=== PATIENT | female | born 1940 | race Hispanic/Latino ===

== ENCOUNTER 2021-11-27 20:36 | Inpatient (IN) | payer MEDICARE ==
[2021-11-27] MEDS ORDERED: Loperamide HCl 2 MG CAP PO PRN ×2 (21:38)
[2021-11-27] MEDS ORDERED: Ondansetron ODT 4 MG TAB PO PRN (21:38)
[2021-11-27] MEDS ORDERED: Ondansetron PF 4 MG/2 ML Vial IVP PRN (21:38)
[2021-11-27] MEDS ORDERED: traMADol HCl 50 MG TAB PO PRN (21:46)
[2021-11-27] MEDS ORDERED: metroNIDAZOLE 500 MG in Premix Bag 1 BAG IVPB SCH (22:00)
[2021-11-27 22:11] LABS: SARS-CoV-2 NAA Rapid Test DETECTED (NotDetected)
[2021-11-28] MEDS ORDERED: Ondansetron ODT 4 MG TAB PO PRN (04:57)
[2021-11-28] MEDS ORDERED: Loperamide HCl 2 MG CAP PO PRN ×2 (04:57→04:58)
[2021-11-28] MEDS ORDERED: Gabapentin 400 MG CAP PO SCH ×5 (05:15→15:00)
[2021-11-28] MEDS: traMADol HCl 50 MG TAB PO PRN ×3 (05:20→15:25)
[2021-11-28] MEDS: metroNIDAZOLE 500 MG in Premix Bag 1 BAG IVPB SCH ×2 (05:22→15:09)
[2021-11-28 06:59] LABS: #Monocytes 0.3 10x3/uL (0.0-1.1); #Neutrophils 2.1 10x3/uL (1.5-8.4); %Eosinophils 0.8 % (0.0-6.0); %Lymphocytes 31.3 % (18.0-47.0); %Monocytes 7.3 % (0.0-10.0); %Neutrophils 60.3 % (40.0-75.0); Hemoglobin 8.6 g/dL (12.0-15.5); Mean Corpuscular HGB CONC 31.7 g/dL (32.0-36.0); Mean Corpuscular Hemoglobin 29.5 pg (27.0-33.0); Mean Corpuscular Volume 92.8 fl (81.6-98.3); Mean Platelet Volume 9.2 fl (7.4-10.4); Platelet Count 183 10x3/uL (150-450); RBC Distribution Width 17.9 % (11.5-14.5); Red Blood Cell (RBC) Count 2.92 10x6/uL (3.90-5.03); White Blood Cell (WBC) Count 3.6 10x3/uL (3.5-10.5)
[2021-11-28 07:01] LABS: ALT (SGPT) 10 U/L (8-55); AST (SGOT) 27 U/L (5-34); Alkaline Phosphatase 54 U/L (40-110); Anion Gap 11 mmol/L (10-20); BUN (Urea Nitrogen) 8 mg/dL (9.8-20.1); Bilirubin, Total 0.1 mg/dL (0.2-1.2); Calc. Creatinine Clearance 0 mL/min (70-130); Calcium 7.8 mg/dL (7.8-10.44); Carbon Dioxide 27 mmol/L (23-31); Chloride 106 mmol/L (98-107); Globulin 2.3 g/dL (2.4-3.5); Glucose 101 mg/dL (83-110); Magnesium 1.6 mg/dL (1.6-2.6); Potassium 3.1 mmol/L (3.5-5.1); Protein, Total 5.3 g/dL (5.8-8.1); Sodium 141 mmol/L (136-145)
[2021-11-28] MEDS ORDERED: Clopidogrel Bisulfate 75 MG TAB PO SCH ×2 (09:00)
[2021-11-28] MEDS ORDERED: Atorvastatin Calcium 20 MG TAB PO SCH (09:00)
[2021-11-28] MEDS ORDERED: Famotidine 20 MG TAB PO SCH ×3 (09:00→21:00)
[2021-11-28] MEDS ORDERED: Calcium Carbonate 500 MG ChewTAB PO SCH (09:00)
[2021-11-28] MEDS ORDERED: Aspirin 81 mg Enteric Coated Tablet PO SCH ×2 (09:00)
[2021-11-28] MEDS ORDERED: Enoxaparin Sodium 40 MG/0.4 ML SYRINGE SC SCH ×2 (09:00)
[2021-11-28] MEDS ORDERED: Metoprolol Tartrate 25 MG TAB PO SCH (09:00)
[2021-11-28 09:42] LABS: #Monocytes 0.3 10x3/uL (0.0-1.1); #Neutrophils 2.3 10x3/uL (1.5-8.4); %Eosinophils 0.8 % (0.0-6.0); %Lymphocytes 29.4 % (18.0-47.0); %Monocytes 6.8 % (0.0-10.0); %Neutrophils 62.5 % (40.0-75.0); Hemoglobin 8.6 g/dL (12.0-15.5); Mean Corpuscular HGB CONC 31.3 g/dL (32.0-36.0); Mean Corpuscular Hemoglobin 29.1 pg (27.0-33.0); Mean Corpuscular Volume 92.9 fl (81.6-98.3); Mean Platelet Volume 9.6 fl (7.4-10.4); Platelet Count 211 10x3/uL (150-450); RBC Distribution Width 18.2 % (11.5-14.5); Red Blood Cell (RBC) Count 2.96 10x6/uL (3.90-5.03); White Blood Cell (WBC) Count 3.7 10x3/uL (3.5-10.5)
[2021-11-28] MEDS: Metoprolol Tartrate 25 MG TAB PO SCH (09:43)
[2021-11-28] MEDS: Atorvastatin Calcium 20 MG TAB PO SCH (09:43)
[2021-11-28] MEDS: Calcium Carbonate 500 MG ChewTAB PO SCH ×2 (09:43→20:45)
[2021-11-28 10:03] LABS: ALT (SGPT) 9 U/L (8-55); AST (SGOT) 27 U/L (5-34); Alkaline Phosphatase 54 U/L (40-110); Anion Gap 13 mmol/L (10-20); BUN (Urea Nitrogen) 8 mg/dL (9.8-20.1); Bilirubin, Total 0.2 mg/dL (0.2-1.2); Calc. Creatinine Clearance 0 mL/min (70-130); Calcium 7.8 mg/dL (7.8-10.44); Carbon Dioxide 26 mmol/L (23-31); Chloride 105 mmol/L (98-107); Globulin 2.3 g/dL (2.4-3.5); Glucose 96 mg/dL (83-110); Magnesium 1.6 mg/dL (1.6-2.6); Phosphorus 3.4 mg/dL (2.3-4.7); Potassium 3.5 mmol/L (3.5-5.1); Protein, Total 5.3 g/dL (5.8-8.1); Sodium 140 mmol/L (136-145)
[2021-11-28 10:09] LABS: PTT 26.4 sec (22.0-33.0); Prothrombin Time 10.7 sec (9.5-12.1)
[2021-11-28] MEDS: Ondansetron PF 4 MG/2 ML Vial IVP PRN (13:39)
[2021-11-28] MEDS: Gabapentin 300 MG CAP PO SCH (20:44)
[2021-11-28] MEDS ORDERED: Pantoprazole 40 MG VIAL IVP SCH (21:00)
[2021-11-28 21:49] LABS: Bilirubin Neg (Negative); Blood, Urine 10 (Negative); Clarity Clear (Clear); Glucose, Urine (Dipstick) Normal (Negative); Ketone, Urine Negative (Negative); Leukocyte 25 (Negative); Nitrite Negative (Negative); Protein, Urine (Dipstick) 30 mg/dl (Neg-Trace); Urobilinogen Normal mg/dL (Less than 2)
[2021-11-28 21:51] LABS: Urine Culture Reflex No No
[2021-11-28 22:00] LABS: Squamous Epithelial 0-3 HPF (0-3)
[2021-11-28 22:01] LABS: Bacteria/HPF 3+ HPF (None Seen); RBC/HPF 0-3 HPF (0-3); WBC/HPF 0-3 HPF (0-3)
[2021-11-29] MEDS: traMADol HCl 50 MG TAB PO PRN ×3 (00:12→15:41)
[2021-11-29 04:56] LABS: ALT (SGPT) 8 U/L (8-55); AST (SGOT) 27 U/L (5-34); Alkaline Phosphatase 50 U/L (40-110); Anion Gap 11 mmol/L (10-20); BUN (Urea Nitrogen) 8 mg/dL (9.8-20.1); Bilirubin, Total 0.2 mg/dL (0.2-1.2); CRP (Inflammatory) 5.09 mg/dL (= or < 0.5); Calc. Creatinine Clearance 0 mL/min (70-130); Calcium 8.1 mg/dL (7.8-10.44); Carbon Dioxide 28 mmol/L (23-31); Chloride 103 mmol/L (98-107); Globulin 2.3 g/dL (2.4-3.5); Glucose 106 mg/dL (83-110); Magnesium 1.6 mg/dL (1.6-2.6); Phosphorus 3.5 mg/dL (2.3-4.7); Potassium 3.2 mmol/L (3.5-5.1); Protein, Total 5.3 g/dL (5.8-8.1); Sodium 139 mmol/L (136-145)
[2021-11-29 04:57] LABS: #Eosinphils 0.1 10x3/uL (0.0-0.5); #Monocytes 0.2 10x3/uL (0.0-1.1); #Neutrophils 1.9 10x3/uL (1.5-8.4); %Eosinophils 1.5 % (0.0-6.0); %Lymphocytes 35.5 % (18.0-47.0); %Monocytes 6.2 % (0.0-10.0); %Neutrophils 56.5 % (40.0-75.0); Hemoglobin 8.4 g/dL (12.0-15.5); Mean Corpuscular HGB CONC 30.4 g/dL (32.0-36.0); Mean Corpuscular Volume 95.2 fl (81.6-98.3); Mean Platelet Volume 10.3 fl (7.4-10.4); Platelet Count 220 10x3/uL (150-450); RBC Distribution Width 17.8 % (11.5-14.5); White Blood Cell (WBC) Count 3.4 10x3/uL (3.5-10.5)
[2021-11-29] MEDS ORDERED: Potassium Chloride 20 MEQ TAB PO SCH (06:15)
[2021-11-29] MEDS: Potassium Chloride 20 MEQ in Premix Bag 1 BAG IVPB SCH ×2 (07:59→13:19)
[2021-11-29] MEDS: Atorvastatin Calcium 20 MG TAB PO SCH (08:00)
[2021-11-29] MEDS: Clopidogrel Bisulfate 75 MG TAB PO SCH (08:00)
[2021-11-29] MEDS: Aspirin 81 mg Enteric Coated Tablet PO SCH (08:00)
[2021-11-29] MEDS: Calcium Carbonate 500 MG ChewTAB PO SCH ×2 (08:00→20:32)
[2021-11-29] MEDS: DULoxetine 30 MG CAP PO SCH (08:00)
[2021-11-29] MEDS: Enoxaparin Sodium 40 MG/0.4 ML SYRINGE SC SCH (08:01)
[2021-11-29] MEDS: Gabapentin 300 MG CAP PO SCH ×3 (08:01→20:32)
[2021-11-29] MEDS: Metoprolol Tartrate 25 MG TAB PO SCH (08:02)
[2021-11-29] MEDS ORDERED: Famotidine 20 MG TAB PO SCH (10:00)
[2021-11-29] MEDS: Ondansetron PF 4 MG/2 ML Vial IVP PRN (13:21)
[2021-11-29] MEDS: Iron, Sodium Ferric Gluconate 125 MG, Admixture Fee 1 EACH in Sodium Chloride 0.9% 100 ML IVPB SCH (15:45)
[2021-11-29] MEDS: Lidocaine 5% Patch TD SCH (17:19)
[2021-11-29] MEDS: Famotidine 20 MG TAB PO SCH (20:31)
[2021-11-30 04:36] LABS: #Eosinphils 0.1 10x3/uL (0.0-0.5); #Monocytes 0.3 10x3/uL (0.0-1.1); #Neutrophils 2.2 10x3/uL (1.5-8.4); %Basophils 0.3 % (0.0-2.0); %Eosinophils 1.9 % (0.0-6.0); %Lymphocytes 30.1 % (18.0-47.0); %Monocytes 6.8 % (0.0-10.0); %Neutrophils 60.4 % (40.0-75.0); Hemoglobin 8.1 g/dL (12.0-15.5); Mean Corpuscular HGB CONC 31.4 g/dL (32.0-36.0); Mean Corpuscular Hemoglobin 29.1 pg (27.0-33.0); Mean Corpuscular Volume 92.8 fl (81.6-98.3); Mean Platelet Volume 10.3 fl (7.4-10.4); Platelet Count 224 10x3/uL (150-450); RBC Distribution Width 17.2 % (11.5-14.5); Red Blood Cell (RBC) Count 2.78 10x6/uL (3.90-5.03); White Blood Cell (WBC) Count 3.7 10x3/uL (3.5-10.5)
[2021-11-30] MEDS: traMADol HCl 50 MG TAB PO PRN ×3 (04:58→15:11)
[2021-11-30 05:17] LABS: ALT (SGPT) 10 U/L (8-55); AST (SGOT) 32 U/L (5-34); Albumin 3.2 g/dL (3.4-4.8); Alkaline Phosphatase 49 U/L (40-110); Anion Gap 13 mmol/L (10-20); BUN (Urea Nitrogen) 8 mg/dL (9.8-20.1); Bilirubin, Total 0.2 mg/dL (0.2-1.2); Calc. Creatinine Clearance 0 mL/min (70-130); Calcium 8.5 mg/dL (7.8-10.44); Carbon Dioxide 29 mmol/L (23-31); Chloride 100 mmol/L (98-107); Globulin 2.4 g/dL (2.4-3.5); Glucose 85 mg/dL (83-110); Magnesium 1.5 mg/dL (1.6-2.6); Phosphorus 2.7 mg/dL (2.3-4.7); Potassium 3.1 mmol/L (3.5-5.1); Protein, Total 5.6 g/dL (5.8-8.1); Sodium 139 mmol/L (136-145)
[2021-11-30] MEDS: LIDOCAINE Patch Removal TOP SCH (05:52)
[2021-11-30] MEDS: Calcium Carbonate 500 MG ChewTAB PO SCH ×2 (09:07→22:11)
[2021-11-30] MEDS: Aspirin 81 mg Enteric Coated Tablet PO SCH (09:07)
[2021-11-30] MEDS: Clopidogrel Bisulfate 75 MG TAB PO SCH (09:07)
[2021-11-30] MEDS: Atorvastatin Calcium 20 MG TAB PO SCH (09:07)
[2021-11-30] MEDS: Enoxaparin Sodium 40 MG/0.4 ML SYRINGE SC SCH (09:07)
[2021-11-30] MEDS: DULoxetine 30 MG CAP PO SCH (09:07)
[2021-11-30] MEDS: Gabapentin 300 MG CAP PO SCH ×3 (09:08→22:11)
[2021-11-30] MEDS: Famotidine 20 MG TAB PO SCH ×2 (09:08→22:11)
[2021-11-30] MEDS: Metoprolol Tartrate 25 MG TAB PO SCH (09:09)
[2021-11-30] MEDS: Ondansetron PF 4 MG/2 ML Vial IVP PRN ×2 (09:09→17:42)
[2021-11-30] MEDS ORDERED: Potassium Chloride 20 MEQ TAB PO SCH (13:45)
[2021-11-30] MEDS ORDERED: ALPRAZolam 0.25 MG TAB PO PRN (13:52)
[2021-11-30] MEDS ORDERED: Iron, Sodium Ferric Gluconate 125 MG, Admixture Fee 1 EACH in Sodium Chloride 0.9% 100 ML IVPB SCH (15:00)
[2021-11-30] MEDS: Magnesium 2 GM/50 ML 2 GM in Premix Bag 1 BAG IVPB SCH ×2 (15:12→18:46)
[2021-11-30] MEDS: metroNIDAZOLE 500 MG in Premix Bag 1 BAG IVPB SCH ×2 (15:12→22:19)
[2021-11-30] MEDS: Iron, Sodium Ferric Gluconate 125 MG, Admixture Fee 1 EACH in Sodium Chloride 0.9% 100 ML IVPB SCH (17:42)
[2021-11-30] MEDS: Lidocaine 5% Patch TD SCH (17:42)
[2021-11-30] MEDS ORDERED: Magnesium 2 GM/50 ML 2 GM in Premix Bag 1 BAG IVPB SCH (19:00)
[2021-11-30] MEDS: Ciprofloxacin Lactate/D5W 200 MG in Premix Bag 1 BAG IVPB SCH (22:09)
[2021-12-01 05:40] LABS: ALT (SGPT) 11 U/L (8-55); AST (SGOT) 33 U/L (5-34); Albumin 3.1 g/dL (3.4-4.8); Alkaline Phosphatase 56 U/L (40-110); Anion Gap 11 mmol/L (10-20); BUN (Urea Nitrogen) 10 mg/dL (9.8-20.1); Bilirubin, Total 0.3 mg/dL (0.2-1.2); Calc. Creatinine Clearance 0 mL/min (70-130); Calcium 8.1 mg/dL (7.8-10.44); Carbon Dioxide 32 mmol/L (23-31); Chloride 96 mmol/L (98-107); Globulin 2.5 g/dL (2.4-3.5); Glucose 111 mg/dL (83-110); Iron 167 ug/dL (50-170); Iron Binding Capacity, Total 184 mcg/dL (265-497); Phosphorus 2.7 mg/dL (2.3-4.7); Potassium 3.2 mmol/L (3.5-5.1); Protein, Total 5.6 g/dL (5.8-8.1); Sodium 136 mmol/L (136-145)
[2021-12-01] MEDS: metroNIDAZOLE 500 MG in Premix Bag 1 BAG IVPB SCH ×3 (05:48→16:01)
[2021-12-01] MEDS: LIDOCAINE Patch Removal TOP SCH (05:48)
[2021-12-01 05:53] LABS: #Eosinphils 0.1 10x3/uL (0.0-0.5); #Monocytes 0.4 10x3/uL (0.0-1.1); #Neutrophils 3.5 10x3/uL (1.5-8.4); %Eosinophils 1.3 % (0.0-6.0); %Lymphocytes 16.6 % (18.0-47.0); %Monocytes 7.6 % (0.0-10.0); %Neutrophils 73.4 % (40.0-75.0); Hemoglobin 8.6 g/dL (12.0-15.5); Mean Corpuscular HGB CONC 32.5 g/dL (32.0-36.0); Mean Corpuscular Hemoglobin 29.5 pg (27.0-33.0); Mean Corpuscular Volume 90.8 fl (81.6-98.3); Mean Platelet Volume 9.7 fl (7.4-10.4); Platelet Count 249 10x3/uL (150-450); RBC Distribution Width 17.3 % (11.5-14.5); Red Blood Cell (RBC) Count 2.92 10x6/uL (3.90-5.03); White Blood Cell (WBC) Count 4.8 10x3/uL (3.5-10.5)
[2021-12-01 05:55] LABS: Ferritin 222.68 ng/mL (10-291)
[2021-12-01] MEDS ORDERED: Potassium Chloride 20 MEQ TAB PO SCH (08:00)
[2021-12-01] MEDS: Gabapentin 300 MG CAP PO SCH ×3 (11:09→22:18)
[2021-12-01] MEDS: Famotidine 20 MG TAB PO SCH ×2 (11:10→22:19)
[2021-12-01] MEDS: Calcium Carbonate 500 MG ChewTAB PO SCH ×2 (11:10→22:20)
[2021-12-01] MEDS: Aspirin 81 mg Enteric Coated Tablet PO SCH (11:10)
[2021-12-01] MEDS: traMADol HCl 50 MG TAB PO PRN ×2 (11:10→17:56)
[2021-12-01] MEDS: Clopidogrel Bisulfate 75 MG TAB PO SCH (11:10)
[2021-12-01] MEDS: Metoprolol Tartrate 25 MG TAB PO SCH (11:11)
[2021-12-01] MEDS: DULoxetine 30 MG CAP PO SCH (11:11)
[2021-12-01] MEDS: Atorvastatin Calcium 20 MG TAB PO SCH (11:11)
[2021-12-01] MEDS: Enoxaparin Sodium 40 MG/0.4 ML SYRINGE SC SCH (11:11)
[2021-12-01] MEDS: metroNIDAZOLE 500 MG TAB PO SCH ×3 (15:57→22:18)
[2021-12-01] MEDS: Iron, Sodium Ferric Gluconate 125 MG, Admixture Fee 1 EACH in Sodium Chloride 0.9% 100 ML IVPB SCH (15:57)
[2021-12-01] MEDS: Ciprofloxacin Lactate/D5W 200 MG in Premix Bag 1 BAG IVPB SCH (16:01)
[2021-12-01] MEDS ORDERED: Lidocaine 5% Patch ONE (17:51)
[2021-12-01] MEDS: Lidocaine 5% Patch TD SCH (17:52)
[2021-12-01] MEDS: Ciprofloxacin 500 MG TAB PO SCH (22:16)
[2021-12-02] MEDS: LIDOCAINE Patch Removal TOP SCH (04:11)
[2021-12-02] MEDS: traMADol HCl 50 MG TAB PO PRN (05:02)
[2021-12-02] MEDS: Ciprofloxacin 500 MG TAB PO SCH ×2 (05:03→20:30)
[2021-12-02 06:06] LABS: #Eosinphils 0.1 10x3/uL (0.0-0.5); #Monocytes 0.5 10x3/uL (0.0-1.1); #Neutrophils 3.3 10x3/uL (1.5-8.4); %Basophils 0.2 % (0.0-2.0); %Lymphocytes 20.5 % (18.0-47.0); %Neutrophils 66.9 % (40.0-75.0); Hemoglobin 8.4 g/dL (12.0-15.5); Mean Corpuscular HGB CONC 31.2 g/dL (32.0-36.0); Mean Corpuscular Hemoglobin 29.2 pg (27.0-33.0); Mean Corpuscular Volume 93.4 fl (81.6-98.3); Mean Platelet Volume 9.7 fl (7.4-10.4); Platelet Count 276 10x3/uL (150-450); RBC Distribution Width 17.4 % (11.5-14.5); Red Blood Cell (RBC) Count 2.88 10x6/uL (3.90-5.03); White Blood Cell (WBC) Count 4.9 10x3/uL (3.5-10.5)
[2021-12-02 06:13] LABS: ALT (SGPT) 11 U/L (8-55); AST (SGOT) 31 U/L (5-34); Albumin 3.2 g/dL (3.4-4.8); Alkaline Phosphatase 54 U/L (40-110); Anion Gap 13 mmol/L (10-20); BUN (Urea Nitrogen) 10 mg/dL (9.8-20.1); Bilirubin, Total 0.4 mg/dL (0.2-1.2); Calc. Creatinine Clearance 0 mL/min (70-130); Calcium 8.3 mg/dL (7.8-10.44); Carbon Dioxide 30 mmol/L (23-31); Chloride 97 mmol/L (98-107); Globulin 2.6 g/dL (2.4-3.5); Glucose 132 mg/dL (83-110); Magnesium 1.7 mg/dL (1.6-2.6); Phosphorus 2.4 mg/dL (2.3-4.7); Protein, Total 5.8 g/dL (5.8-8.1); Sodium 136 mmol/L (136-145)
[2021-12-02] MEDS: Gabapentin 300 MG CAP PO SCH ×3 (08:51→20:30)
[2021-12-02] MEDS: Calcium Carbonate 500 MG ChewTAB PO SCH ×2 (08:51→20:30)
[2021-12-02] MEDS: Enoxaparin Sodium 40 MG/0.4 ML SYRINGE SC SCH (08:52)
[2021-12-02] MEDS: Atorvastatin Calcium 20 MG TAB PO SCH (08:53)
[2021-12-02] MEDS: Famotidine 20 MG TAB PO SCH ×2 (08:53→20:30)
[2021-12-02] MEDS: Metoprolol Tartrate 25 MG TAB PO SCH (08:53)
[2021-12-02] MEDS: metroNIDAZOLE 500 MG TAB PO SCH ×3 (08:53→20:30)
[2021-12-02] MEDS: Clopidogrel Bisulfate 75 MG TAB PO SCH (08:53)
[2021-12-02] MEDS: Aspirin 81 mg Enteric Coated Tablet PO SCH (08:53)
[2021-12-02] MEDS: DULoxetine 30 MG CAP PO SCH (08:53)
[2021-12-02] MEDS: Iron, Sodium Ferric Gluconate 125 MG, Admixture Fee 1 EACH in Sodium Chloride 0.9% 100 ML IVPB SCH (14:44)
[2021-12-02] MEDS: Lidocaine 5% Patch TD SCH (16:39)
[2021-12-03] MEDS: Ciprofloxacin 500 MG TAB PO SCH ×2 (05:20→20:41)
[2021-12-03] MEDS: LIDOCAINE Patch Removal TOP SCH (05:21)
[2021-12-03 07:02] LABS: ALT (SGPT) 11 U/L (8-55); AST (SGOT) 30 U/L (5-34); Albumin 3.2 g/dL (3.4-4.8); Alkaline Phosphatase 55 U/L (40-110); Anion Gap 15 mmol/L (10-20); BUN (Urea Nitrogen) 8 mg/dL (9.8-20.1); Bilirubin, Total 0.5 mg/dL (0.2-1.2); Calc. Creatinine Clearance 0 mL/min (70-130); Calcium 8.7 mg/dL (7.8-10.44); Carbon Dioxide 28 mmol/L (23-31); Chloride 98 mmol/L (98-107); Globulin 2.6 g/dL (2.4-3.5); Glucose 96 mg/dL (83-110); Magnesium 1.7 mg/dL (1.6-2.6); Phosphorus 3.2 mg/dL (2.3-4.7); Potassium 3.9 mmol/L (3.5-5.1); Protein, Total 5.8 g/dL (5.8-8.1); Sodium 137 mmol/L (136-145)
[2021-12-03 07:15] LABS: #Eosinphils 0.1 10x3/uL (0.0-0.5); #Monocytes 0.5 10x3/uL (0.0-1.1); #Neutrophils 2.7 10x3/uL (1.5-8.4); %Basophils 0.5 % (0.0-2.0); %Lymphocytes 22.1 % (18.0-47.0); %Monocytes 11.5 % (0.0-10.0); Hemoglobin 9.1 g/dL (12.0-15.5); Mean Corpuscular HGB CONC 32.3 g/dL (32.0-36.0); Mean Corpuscular Hemoglobin 29.3 pg (27.0-33.0); Mean Corpuscular Volume 90.7 fl (81.6-98.3); Platelet Count 286 10x3/uL (150-450); RBC Distribution Width 17.6 % (11.5-14.5); Red Blood Cell (RBC) Count 3.11 10x6/uL (3.90-5.03); White Blood Cell (WBC) Count 4.4 10x3/uL (3.5-10.5)
[2021-12-03] MEDS: Enoxaparin Sodium 40 MG/0.4 ML SYRINGE SC SCH (09:11)
[2021-12-03] MEDS: Calcium Carbonate 500 MG ChewTAB PO SCH ×2 (09:13→20:42)
[2021-12-03] MEDS: Atorvastatin Calcium 20 MG TAB PO SCH (09:14)
[2021-12-03] MEDS: metroNIDAZOLE 500 MG TAB PO SCH ×3 (09:14→20:41)
[2021-12-03] MEDS: DULoxetine 30 MG CAP PO SCH (09:14)
[2021-12-03] MEDS: Aspirin 81 mg Enteric Coated Tablet PO SCH (09:14)
[2021-12-03] MEDS: Clopidogrel Bisulfate 75 MG TAB PO SCH (09:15)
[2021-12-03] MEDS: Famotidine 20 MG TAB PO SCH ×2 (09:15→20:41)
[2021-12-03] MEDS: Gabapentin 100 MG CAP PO SCH ×3 (09:15→20:41)
[2021-12-03] MEDS: Metoprolol Tartrate 25 MG TAB PO SCH (09:15)
[2021-12-03] MEDS: traMADol HCl 50 MG TAB PO PRN (15:02)
[2021-12-03] MEDS: Lidocaine 5% Patch TD SCH (16:43)
[2021-12-03] MEDS: Iron, Sodium Ferric Gluconate 125 MG, Admixture Fee 1 EACH in Sodium Chloride 0.9% 100 ML IVPB SCH (18:20)
[2021-12-04] MEDS: LIDOCAINE Patch Removal TOP SCH (05:47)
[2021-12-04] MEDS: Ciprofloxacin 500 MG TAB PO SCH ×2 (05:48→20:54)
[2021-12-04] MEDS: Gabapentin 100 MG CAP PO SCH ×3 (09:04→22:30)
[2021-12-04] MEDS: Enoxaparin Sodium 40 MG/0.4 ML SYRINGE SC SCH (09:04)
[2021-12-04] MEDS: metroNIDAZOLE 500 MG TAB PO SCH ×3 (09:04→22:30)
[2021-12-04] MEDS: Calcium Carbonate 500 MG ChewTAB PO SCH ×2 (09:04→22:30)
[2021-12-04] MEDS: DULoxetine 30 MG CAP PO SCH (09:05)
[2021-12-04] MEDS: Atorvastatin Calcium 20 MG TAB PO SCH (09:05)
[2021-12-04] MEDS: Famotidine 20 MG TAB PO SCH ×2 (09:05→22:30)
[2021-12-04] MEDS: Aspirin 81 mg Enteric Coated Tablet PO SCH (09:05)
[2021-12-04] MEDS: Metoprolol Tartrate 25 MG TAB PO SCH (09:05)
[2021-12-04] MEDS: Clopidogrel Bisulfate 75 MG TAB PO SCH (15:10)
[2021-12-04] MEDS: Lidocaine 5% Patch TD SCH (16:33)
[2021-12-04] MEDS: traMADol HCl 50 MG TAB PO PRN (23:12)
[2021-12-05] MEDS: Ciprofloxacin 500 MG TAB PO SCH ×2 (05:56→20:03)
[2021-12-05] MEDS: LIDOCAINE Patch Removal TOP SCH (05:56)
[2021-12-05] MEDS: Enoxaparin Sodium 40 MG/0.4 ML SYRINGE SC SCH (07:54)
[2021-12-05] MEDS: metroNIDAZOLE 500 MG TAB PO SCH ×3 (07:55→22:00)
[2021-12-05] MEDS: Gabapentin 100 MG CAP PO SCH ×3 (07:55→22:00)
[2021-12-05] MEDS: Calcium Carbonate 500 MG ChewTAB PO SCH ×2 (07:56→22:00)
[2021-12-05] MEDS: Clopidogrel Bisulfate 75 MG TAB PO SCH (07:56)
[2021-12-05] MEDS: Aspirin 81 mg Enteric Coated Tablet PO SCH (07:56)
[2021-12-05] MEDS: Metoprolol Tartrate 25 MG TAB PO SCH (07:56)
[2021-12-05] MEDS: DULoxetine 30 MG CAP PO SCH (07:56)
[2021-12-05] MEDS: Famotidine 20 MG TAB PO SCH ×2 (07:56→22:00)
[2021-12-05] MEDS: Atorvastatin Calcium 20 MG TAB PO SCH (07:56)
[2021-12-05] MEDS: Lidocaine 5% Patch TD SCH (17:37)
[2021-12-06] MEDS: LIDOCAINE Patch Removal TOP SCH (06:00)
[2021-12-06] MEDS: Ciprofloxacin 500 MG TAB PO SCH ×2 (06:09→20:51)
[2021-12-06] MEDS: Enoxaparin Sodium 40 MG/0.4 ML SYRINGE SC SCH (08:39)
[2021-12-06] MEDS: Gabapentin 100 MG CAP PO SCH ×3 (08:39→20:48)
[2021-12-06] MEDS: metroNIDAZOLE 500 MG TAB PO SCH ×3 (08:40→20:49)
[2021-12-06] MEDS: Clopidogrel Bisulfate 75 MG TAB PO SCH (08:40)
[2021-12-06] MEDS: Aspirin 81 mg Enteric Coated Tablet PO SCH (08:40)
[2021-12-06] MEDS: Atorvastatin Calcium 20 MG TAB PO SCH (08:40)
[2021-12-06] MEDS: Calcium Carbonate 500 MG ChewTAB PO SCH ×2 (08:40→20:49)
[2021-12-06] MEDS: Famotidine 20 MG TAB PO SCH ×2 (08:40→20:49)
[2021-12-06] MEDS: Metoprolol Tartrate 25 MG TAB PO SCH (08:40)
[2021-12-06] MEDS: DULoxetine 30 MG CAP PO SCH (08:41)
[2021-12-06] MEDS: traMADol HCl 50 MG TAB PO PRN ×2 (08:50)
[2021-12-06] MEDS: Lidocaine 5% Patch TD SCH (16:20)
[2021-12-07] MEDS: Ciprofloxacin 500 MG TAB PO SCH ×2 (06:08→21:14)
[2021-12-07] MEDS: LIDOCAINE Patch Removal TOP SCH (06:08)
[2021-12-07] MEDS: Gabapentin 100 MG CAP PO SCH ×3 (10:17→21:16)
[2021-12-07] MEDS: Calcium Carbonate 500 MG ChewTAB PO SCH ×2 (10:17→21:18)
[2021-12-07] MEDS: Famotidine 20 MG TAB PO SCH ×2 (10:18→21:18)
[2021-12-07] MEDS: Clopidogrel Bisulfate 75 MG TAB PO SCH (10:18)
[2021-12-07] MEDS: Atorvastatin Calcium 20 MG TAB PO SCH (10:18)
[2021-12-07] MEDS: Metoprolol Tartrate 25 MG TAB PO SCH (10:18)
[2021-12-07] MEDS: metroNIDAZOLE 500 MG TAB PO SCH ×3 (10:18→21:18)
[2021-12-07] MEDS: Aspirin 81 mg Enteric Coated Tablet PO SCH (10:18)
[2021-12-07] MEDS: Enoxaparin Sodium 40 MG/0.4 ML SYRINGE SC SCH (10:19)
[2021-12-07] MEDS: DULoxetine 30 MG CAP PO SCH (10:19)
[2021-12-07] MEDS: Lidocaine 5% Patch TD SCH (15:52)
[2021-12-08] MEDS: LIDOCAINE Patch Removal TOP SCH (05:42)
[2021-12-08] MEDS: Ciprofloxacin 500 MG TAB PO SCH ×2 (05:42→20:33)
[2021-12-08 07:02] LABS: Anion Gap 12 mmol/L (10-20); BUN (Urea Nitrogen) 14 mg/dL (9.8-20.1); Calc. Creatinine Clearance 0 mL/min (70-130); Calcium 8.8 mg/dL (7.8-10.44); Carbon Dioxide 29 mmol/L (23-31); Chloride 102 mmol/L (98-107); Glucose 103 mg/dL (83-110); Magnesium 1.6 mg/dL (1.6-2.6); Potassium 3.4 mmol/L (3.5-5.1); Sodium 140 mmol/L (136-145)
[2021-12-08 07:13] LABS: #Eosinphils 0.2 10x3/uL (0.0-0.5); #Monocytes 0.5 10x3/uL (0.0-1.1); #Neutrophils 2.4 10x3/uL (1.5-8.4); %Basophils 0.2 % (0.0-2.0); %Eosinophils 4.2 % (0.0-6.0); %Lymphocytes 25.1 % (18.0-47.0); %Monocytes 12.3 % (0.0-10.0); %Neutrophils 57.7 % (40.0-75.0); Hemoglobin 9.6 g/dL (12.0-15.5); Mean Corpuscular Hemoglobin 28.7 pg (27.0-33.0); Mean Corpuscular Volume 92.5 fl (81.6-98.3); Mean Platelet Volume 9.5 fl (7.4-10.4); Platelet Count 383 10x3/uL (150-450); RBC Distribution Width 18.5 % (11.5-14.5); Red Blood Cell (RBC) Count 3.35 10x6/uL (3.90-5.03); White Blood Cell (WBC) Count 4.1 10x3/uL (3.5-10.5)
[2021-12-08] MEDS: Gabapentin 100 MG CAP PO SCH ×3 (08:32→20:30)
[2021-12-08] MEDS: Enoxaparin Sodium 40 MG/0.4 ML SYRINGE SC SCH (08:33)
[2021-12-08] MEDS: Famotidine 20 MG TAB PO SCH ×2 (08:33→20:30)
[2021-12-08] MEDS: metroNIDAZOLE 500 MG TAB PO SCH ×3 (08:34→20:31)
[2021-12-08] MEDS: Aspirin 81 mg Enteric Coated Tablet PO SCH (08:34)
[2021-12-08] MEDS: Atorvastatin Calcium 20 MG TAB PO SCH (08:34)
[2021-12-08] MEDS: Metoprolol Tartrate 25 MG TAB PO SCH (08:34)
[2021-12-08] MEDS: Calcium Carbonate 500 MG ChewTAB PO SCH ×2 (08:34→20:31)
[2021-12-08] MEDS: DULoxetine 30 MG CAP PO SCH (08:34)
[2021-12-08] MEDS: Clopidogrel Bisulfate 75 MG TAB PO SCH (08:34)
[2021-12-08] MEDS: traMADol HCl 50 MG TAB PO PRN (15:58)
[2021-12-08] MEDS: Lidocaine 5% Patch TD SCH (17:40)
[2021-12-09 05:25] LABS: #Eosinphils 0.2 10x3/uL (0.0-0.5); #Monocytes 0.6 10x3/uL (0.0-1.1); %Basophils 0.5 % (0.0-2.0); %Eosinophils 3.4 % (0.0-6.0); %Monocytes 12.5 % (0.0-10.0); %Neutrophils 46.4 % (40.0-75.0); Hemoglobin 9.6 g/dL (12.0-15.5); Mean Corpuscular HGB CONC 31.3 g/dL (32.0-36.0); Mean Corpuscular Hemoglobin 28.8 pg (27.0-33.0); Mean Corpuscular Volume 92.2 fl (81.6-98.3); Mean Platelet Volume 9.7 fl (7.4-10.4); Platelet Count 339 10x3/uL (150-450); RBC Distribution Width 18.9 % (11.5-14.5); Red Blood Cell (RBC) Count 3.33 10x6/uL (3.90-5.03); White Blood Cell (WBC) Count 4.4 10x3/uL (3.5-10.5)
[2021-12-09] MEDS: LIDOCAINE Patch Removal TOP SCH (05:28)
[2021-12-09] MEDS: Ciprofloxacin 500 MG TAB PO SCH (05:28)
[2021-12-09 05:31] LABS: Anion Gap 11 mmol/L (10-20); BUN (Urea Nitrogen) 17 mg/dL (9.8-20.1); Calc. Creatinine Clearance 0 mL/min (70-130); Calcium 8.6 mg/dL (7.8-10.44); Carbon Dioxide 30 mmol/L (23-31); Chloride 105 mmol/L (98-107); Glucose 103 mg/dL (83-110); Potassium 3.2 mmol/L (3.5-5.1); Sodium 143 mmol/L (136-145)
[2021-12-09] MEDS ORDERED: Potassium Chloride 20 MEQ TAB PO SCH (07:45)
[2021-12-09] MEDS: Metoprolol Tartrate 25 MG TAB PO SCH (08:50)
[2021-12-09] MEDS: Gabapentin 100 MG CAP PO SCH (08:50)
[2021-12-09] MEDS: DULoxetine 30 MG CAP PO SCH (08:50)
[2021-12-09] MEDS: Calcium Carbonate 500 MG ChewTAB PO SCH (08:50)
[2021-12-09] MEDS: traMADol HCl 50 MG TAB PO PRN (08:51)
[2021-12-09] MEDS: metroNIDAZOLE 500 MG TAB PO SCH (08:51)
[2021-12-09] MEDS: Famotidine 20 MG TAB PO SCH (08:51)
[2021-12-09] MEDS: Aspirin 81 mg Enteric Coated Tablet PO SCH (08:52)
[2021-12-09] MEDS: Enoxaparin Sodium 40 MG/0.4 ML SYRINGE SC SCH (08:52)
[2021-12-09] MEDS: Atorvastatin Calcium 20 MG TAB PO SCH (08:52)
[2021-12-09] MEDS: Clopidogrel Bisulfate 75 MG TAB PO SCH (08:52)
[2021-12-09 11:51] VITALS: BP 151/72
[2021-12-09 13:09] VITALS: TEMP 98.5
== END 2021-12-09 16:50 | disposition home health service (06) | DRG 393 ==
LOC: CSHERS 20:36 → INTOOBSV 11-28 01:54 → CSHTELE 11-28 01:54 → OBSVTOIN 11-29 15:31
PROVIDERS: ADMIT Family Medicine; ATTEND Internal Medicine
PROC: 8E0ZXY6 Isolation (ICD-10-PCS; principal; 2021-11-29)
DX: K55.9 Vascular disorder of intestine, unspecified (principal); U07.1 COVID-19; K57.92 Diverticulitis of intestine, part unspecified, without perforation or abscess without bleeding; F17.210 Nicotine dependence, cigarettes, uncomplicated; I10 Essential (primary) hypertension; G89.29 Other chronic pain; E78.5 Hyperlipidemia, unspecified; Z96.652 Presence of left artificial knee joint; D64.9 Anemia, unspecified; J44.9 Chronic obstructive pulmonary disease, unspecified; F41.9 Anxiety disorder, unspecified; F32.9 Major depressive disorder, single episode, unspecified; F41.8 Other specified anxiety disorders; Z96.642 Presence of left artificial hip joint; Z87.19 Personal history of other diseases of the digestive system; Z88.8 Allergy status to other drugs, medicaments and biological substances; Z79.82 Long term (current) use of aspirin; Z79.02 Long term (current) use of antithrombotics/antiplatelets; Z79.899 Other long term (current) drug therapy; Z98.1 Arthrodesis status; Z71.6 Tobacco abuse counseling
CPT/HCPCS: 0240U; 36415; 36416; 71045; 76705; 80048; 80053; 81001; 82274; 82607; 82728; 82746; 83540; 83550; 83605; 83615; 83630; 83735; 84100; 85025; 85046; 85610; 85730; 86140; 86850; 86900; 86901; 87045; 87046; 87081; 87086; 87324; 87427; 87449; 93005; 96372; 96374; 96375; 96376; G0378; J0744; J1650; J2405; J2916; J3475; J3480; J3490; Q0162